=== PATIENT | male | born 1995 | race African-American/Black ===

== ENCOUNTER 2022-11-09 02:08 | Emergency (ER) | payer OTHER ==
[~2022-11-09] VITALS: Ht 172.7 cm; Wt 74.8 kg
[2022-11-09] MEDS ORDERED: IBUPROFEN 600 MG TABLET ONE (02:24)
[2022-11-09] MEDS ORDERED: CYCLOBENZAPRINE HCL 10 MG TABLET ONE (02:24)
[2022-11-09] MEDS ORDERED: IBUPROFEN 600 MG TABLET PO ONE (02:30)
[2022-11-09] MEDS ORDERED: CYCLOBENZAPRINE HCL 10 MG TABLET PO ONE (02:30)
[2022-11-09] MEDS ORDERED: CYCL10TA9 PO (02:39)
[2022-11-09] MEDS ORDERED: ONDA4TAB5 PO (02:39)
[2022-11-09] MEDS ORDERED: HYDR-4209 PO (02:39)
[2022-11-09 02:53] VITALS: BP 128/67
--- NOTE | 2022-11-09 02:53 | NUR ---
Patient discharged to home in stable condition. Written and verbal after care instructions given. Patient verbalizes understanding of instructions. Stressed follow up or return to ER for worsening s/s. Patient is a/ox4, NAD noted. patient is ambulatory with steady gait
[2022-11-09] MEDS ORDERED: OXYC-128 PO (03:14)
== END 2022-11-09 02:54 | disposition home or self-care (01) ==
LOC: ER 02:12
DX: S39.012A Strain of muscle, fascia and tendon of lower back, initial encounter (principal); X50.9XXA Other and unspecified overexertion or strenuous movements or postures, initial encounter; Y93.B9 Activity, other involving muscle strengthening exercises; Y92.39 Other specified sports and athletic area as the place of occurrence of the external cause
CPT/HCPCS: 72100; A4663